=== PATIENT | male | born 1975 | race African-American/Black ===

== ENCOUNTER 2022-12-08 19:15 | Emergency (ER) | payer BC, SELFPAY ==
--- NOTE | ~2022-12-08 | XR_ITS ---
Left ankle Technique: AP, oblique, and lateral views were obtained. Clinical History: Pain Findings: No acute fracture or dislocation is seen. Osseous alignment is anatomic. Ankle mortise and other visualized joint spaces are preserved. Soft tissues are otherwise unremarkable. Impression: Unremarkable left ankle. Reviewed, dictated and finalized at location . Impression: Unremarkable left ankle.
--- NOTE | 2022-12-08 19:21 | ED.GENADULT ---
HPI - General Adult General Chief complaint: Extremity Injury, Lower Stated complaint: Left Ankle Pain Time Seen by Provider: 12/08/22 19:21 Source: patient Mode of arrival: ambulatory Limitations: no limitations History of Present Illness HPI narrative: 47-year-old male patient presents to the [facility] with complaints of left ankle pain. Patient states he was walking up some steps and missed a step and rolled his ankle. Patient states he has been walking on it but has been painful. Patient states he has been icing it since the incident. Patient states he just wanted to come in to make sure there was no fracture. Related Data Home Medications Medication Instructions Recorded Confirmed hydrochlorothiazide 12.5 mg tablet mg 12/08/22 losartan 50 mg tablet mg 12/08/22 metoprolol succinate 25 mg mg PO 12/08/22 tablet,extended release 24 hr Allergies Allergy/AdvReac Type Severity Reaction Status Date / Time No Known Allergies Allergy Verified 12/08/22 19:29 Review of Systems Review of Systems: CONSTITUTIONAL: Denies fever, chills, or sweats. EYES: Denies visual changes, redness, or discharge. ENT: Denies rhinorrhea, congestion, sore throat, or otalgia. CARDIOVASCULAR: Denies chest pain, palpitations, or edema. RESPIRATORY: Denies cough or dyspnea. GASTROINTESTINAL: Denies abdominal pain, nausea, vomiting, or diarrhea. GENITOURINARY: Denies dysuria or hematuria. SKIN: Denies rash or itching. MUSCULOSKELETAL: Denies back pain, joint pain, or myalgia. Positive left ankle pain NEUROLOGIC: Denies headache, numbness, or weakness. PSYCHIATRIC: Denies anxiety or depression. PMFSH Comments At the time of my signature I agree with nursing past medical history, surgical, social, and family history. There is no relevant family history pertinent to the presenting complaint. Exam Narrative: GENERAL: Well-appearing, well-nourished, and in no acute distress. HEAD: Normocephalic, atraumatic. EYES: PERRLA and EOMI. ENT: Nares clear, no rhinorrhea or epistaxis. Mucous membranes moist. NECK: Supple. No lymphadenopathy CHEST: Clear to auscultation. No respiratory distress. HEART: Regular rate and rhythm. No murmur heard. Normal peripheral pulses. ABDOMEN: Soft, nontender, nondistended, normal active bowel sounds. EXTREMITIES: Patient is able to bear weight and ambulate with pain. The L ankle is without obvious asymmetry or deformity when compared to the R ankle. Patient can flex/extend, invert/alexandre. No obvious surface trauma, ecchymosis, there is significant soft tissue swelling noted over the lateral malleolus area. body tenderness to palpation over the lateral malleolus. Anterior talofibular ligament, posterior talofibular ligament, calcaneofibular ligament nontender and without swelling. No tenderness or deformity of the midfoot or over the proximal fifth metatarsal. Good DP and posterior tibial pulses and sensation to light touch normal. Talar tilt test is negative for ligament laxity to valgus or vargus stress. Negative anterior draw. Peroneal nerve is intact with strong eversion and plantar flexion. SKIN: Warm, dry, no rash. NEURO: No focal deficits. Alert and oriented x3. Course Course Level of Care: Express Care Visit Vital Signs Vital signs: Vital Signs Temperature 37.9 C H 12/08/22 19:30 Pulse Rate 105 H 12/08/22 19:30 Respiratory Rate 18 12/08/22 19:30 Blood Pressure 124/92 H 12/08/22 19:30 Pulse Oximetry 98 12/08/22 19:30 Oxygen Delivery Room Air 12/08/22 19:30 Temperature 37.9 C H 12/08/22 19:30 Pulse Rate 105 H 12/08/22 19:30 Respiratory Rate 18 12/08/22 19:30 Blood Pressure 124/92 H 12/08/22 19:30 Pulse Oximetry 98 12/08/22 19:30 Oxygen Delivery Room Air 12/08/22 19:30 Vital signs reviewed Medical Decision Making MDM Narrative Medical decision making narrative: Plan care for patient is to x-ray the left ankle to assess for any acute fractures. If t
[2022-12-08 19:30] VITALS: BP 124/92; PULSE 105; RESP 18; TEMP 37.9; O2SAT 98
== END 2022-12-08 20:05 | disposition home or self-care (01) ==
PROVIDERS: Emergency Provider Nurse Practitioner Family; PCP Nurse Practitioner Family
DX: S93.402A Sprain of unspecified ligament of left ankle, initial encounter (principal); S96.912A Strain of unspecified muscle and tendon at ankle and foot level, left foot, initial encounter; W10.9XXA Fall (on) (from) unspecified stairs and steps, initial encounter; I10 Essential (primary) hypertension
CPT/HCPCS: 73610; 99203; G0463